=== PATIENT | female | born 1965 | race Caucasian/White ===

== ENCOUNTER → 2016-12-23 | Outpatient (CLI) | payer BC, OTHER ==
[2016-03-30 15:24] VITALS: BP 103/79
[~2016-12-23] MED LIST: ASPI-630 PO; ATORVASTATIN CA80 MG PO; LEVO137T3 PO; LISI2.5T PO; METO25TA9 PO; PRAS10TA9 PO
--- NOTE | 2016-12-23 12:51 | RAD ---
APPROVED REPORT Patient Location: OUT-PATIENT Indications Claudication:Bilaterally VELOCITY AND DOPPLER WAVEFORM ANALYSIS RIGHT cm/secWaveformSeverity LEFT c m/secWaveformSeverity pCFA 158.3pCFA 135.2 Prof Fem Art. 100.0Prof Fem Art. 85.6 Fem Art Prox. 108.3Fem Art Prox. 103.3 Fem Art Mid. 97.2Fem Art Mid. 91.0 Fem Art Dist. 70.9Fem Art Dist. 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 44.6PTA Dist. 35.3 Per Art Dist. 36.8Per Art Dist. 46.3 ROMELIA Dist. 61.1ATA Dist. 59.8 Findings Henao scale images of the right common femoral, superficial femoral, profunda, popliteal and below-kne e vessels reveals mild to moderate atherosclerotic plaque. Spectral waveforms and color Doppler from the common femoral segment to the popliteal segment are grossly normal with triphasic and biphasic wa veforms. Below the knee there are diminished velocities suggestive of diffuse atherosclerosis of appr oximately 50%. No high-grade flow-limiting stenosis is identified. There is three-vessel runoff below the knee. On the left side grayscale images again demonstrate moderate atherosclerotic plaque throughout the ar terial tree. Velocities are grossly normal from the common femoral to popliteal segment. Diffuse less than 50% stenosis noted. Below the knee again there is diminished velocities in the posterior tibial and peroneal vessels suggestive again of diffuse disease without any focal high-grade flow-limiting stenosis. There is again 3 vessel runoff noted. Critical Notification Critical Value: No <Conclusion> 1. Bilateral scattered after scrubbing plaque with no focal high-grade stenosis identified. Suspect d iffuse disease of approximately 50% throughout the arterial course. 2. Possible greater than 50% stenosis in the bilateral tibial peroneal systems.
== END | disposition home or self-care (01) ==
LOC: US 08:27
PROVIDERS: ATTEND Internal Medicine Cardiovascular Disease
DX: I73.9 Peripheral vascular disease, unspecified (principal); I25.10 Atherosclerotic heart disease of native coronary artery without angina pectoris; M79.605 Pain in left leg; M79.604 Pain in right leg
CPT/HCPCS: 93925

== ENCOUNTER → 2018-07-14 | Outpatient (CLI) | payer OTHER ==
[2016-03-30 15:24] VITALS: BP 103/79
[~2018-07-14] MED LIST changes: +METO-239 PO; -METO25TA9 PO
--- NOTE | 2018-07-14 15:08 | KCIC ---
EXAM: Abdomen sonogram. HISTORY: Right upper quadrant pain. TECHNIQUE: Sonographic imaging of the abdomen was performed. COMPARISON: 03/30/2016. FINDINGS: The liver is normal in size. No focal hepatic lesion is seen. There is slight increased hepatic parenchymal echogenicity. The common bile duct is normal in caliber. The gallbladder wall is normal in thickness. There is no convincing cholelithiasis. There is no pericholecystic fluid. The pancreas, kidneys, spleen, aorta and inferior vena cava are unremarkable. IMPRESSION: 1. Slightly echogenic liver parenchyma. This may be due to imaging technique or slight steatosis. 2. Otherwise, unremarkable abdomen sonogram. Electronically signed by: Sharla Joiner MD (07/14/2018 3:05 PM) [id number]
== END | disposition home or self-care (01) ==
LOC: KCIC US 10:45
PROVIDERS: ATTEND Family Medicine
DX: R10.11 Right upper quadrant pain (principal)
CPT/HCPCS: 76700

== ENCOUNTER → 2018-12-18 | Outpatient (CLI) | payer OTHER ==
[2016-03-30 15:24] VITALS: BP 103/79
--- NOTE | 2018-12-18 14:33 | KCIC ---
ABDOMEN LTD INDICATION: Epigastric pain COMPARISON: Abdominal ultrasound 07/14/2018. TECHNIQUE: Limited transverse and longitudinal grayscale images of the right upper quadrant with color and pulsed doppler utilized as appropriate. FINDINGS: The liver demonstrates normal echogenicity without focal lesions. The liver measures 13.4 cm. The portal vein is patent with normal antegrade flow. The gallbladder is normal in appearance without stones. No wall thickening or pericholecystic fluid. Negative sonographic Lane's sign. No intrahepatic or extrahepatic biliary dilatation. The common bile duct measures 0.2 cm. The visualized portions of the pancreas demonstrate normal echogenicity without focal lesions. The right kidney has normal echogenicity and measures 10.1 cm. No hydronephrosis, shadowing stones or suspicious masses seen. No ascites or fluid collections. The aorta and IVC are normal diameter where visualized. IMPRESSION: Normal right upper quadrant ultrasound. Electronically signed by: Jason Gee MD (12/18/2018 2:30 PM) [id number]
== END | disposition home or self-care (01) ==
LOC: KCIC US 09:30
PROVIDERS: ATTEND Family Medicine
DX: R10.13 Epigastric pain (principal); R10.11 Right upper quadrant pain
CPT/HCPCS: 76705

== ENCOUNTER 2020-06-22 14:12 | Emergency (ER) | payer OTHER ==
[~2020-06-22] VITALS: Ht 157.5 cm; Wt 63.6 kg
[2020-06-22 14:12] VITALS: BP 194/92
--- NOTE | 2020-06-22 14:21 | ED.ADGEN ---
Past Medical History Past Medical History: High Cholesterol, Hypertension, Hypothyroid, IN Past Surgical History: Other Additional Past Surgical Histo: cardiac cath with stents Smoking Status: Never Smoker Alcohol Use: None Drug Use: None General Adult EDM: Chief Complaint: HAND PROBLEM HPI: HPI: Patient is a 55-year-old female who arrives ambulatory to the emergency department complaining of an injury to her left hand. Patient reportedly fell just prior to arrival and tried to break her fall. In doing so the patient sustained an injury to her left hand in the region of her proximal thumb. Patient has swelling with ecchymosis now in addition to pain with any range of motion testing. The patient is right-hand dominant denies injury otherwise. She is awake, alert and nontoxic-appearing. Review of Systems: Review of Systems: Constitutional: Denies fever or chills. [] Eyes: Denies change in visual acuity. [] HENT: Denies nasal congestion or sore throat. [] Respiratory: Denies cough or shortness of breath. [] Cardiovascular: Denies chest pain or edema. [] GI: Denies abdominal pain, nausea, vomiting, bloody stools or diarrhea. [] : Denies dysuria. [] Musculoskeletal: Extremity pain/left hand pain. Denies back pain or joint pain. [] Integument: Reports ecchymosis with swelling of left thumb. Denies rash. [] Neurologic: Denies headache, focal weakness or sensory changes. [] Endocrine: Denies polyuria or polydipsia. [] Lymphatic: Denies swollen glands. [] Psychiatric: Denies depression or anxiety. [] Family History: Family History: Noncontributory Allergies: Allergies: Allergies Coded Allergies Type Severity Reaction Last Updated Verified morphine Adverse Reaction Mild Nausea 03/30/16 Yes Physical Exam: PE: Constitutional: Well developed, well nourished, no acute distress, non-toxic appearance. [] HENT: Normocephalic, atraumatic, bilateral external ears normal, oropharynx moist, no oral exudates, nose normal. [] Eyes: PERRLA, EOMI, conjunctiva normal, no discharge. [] Neck: Normal range of motion, no tenderness, supple, no stridor. [] Cardiovascular:Heart rate regular rhythm, no murmur [] Lungs & Thorax: Bilateral breath sounds clear to auscultation [] Abdomen: Bowel sounds normal, soft, no tenderness, no masses, no pulsatile masses. [] Skin: Warm, dry, no erythema, no rash. [] Back: No tenderness, no CVA tenderness. [] Extremities: Patient has tenderness to palpation at the base of her left thumb with associated ecchymosis and minimal swelling. The patient does have full range of motion however she does have this with pain. The remainder the examination with respect to her left hand is within normal limits. Neurologic: Alert and oriented X 3, normal motor function, normal sensory function, no focal deficits noted. [] Psychologic: Affect normal, judgement normal, mood normal. [] Current Patient Data: Vital Signs: Vital Signs Date Time Temp Pulse Resp B/P (MAP) Pulse Ox O2 Delivery O2 Flow Rate FiO2 06/22/20 14:12 98.1 91 18 194/92 (126) 96 Room Air 98.1 EKG: EKG: [] Heart Score: Risk Factors: Risk Factors: DM, Current or recent (<one month) smoker, HTN, HLP, family history of CAD, obesity. Risk Scores: Score 0 - 3: 2.5% MACE over next 6 weeks - Discharge Home Score 4 - 6: 20.3% MACE over next 6 weeks - Admit for Clinical Observation Score 7 - 10: 72.7% MACE over next 6 weeks - Early Invasive Strategies Radiology/Procedures: Radiology/Procedures: [] Impression: [facility] [address] [place] [address] IMAGING REPORT Signed PATIENT: JOSE GUADALUPE MENDOZA ACCOUNT: [id number] : 1965 LOCATION: ER AGE: 55 SEX: F EXAM STATUS: REG ER ORD. PHYSICIAN: JAMISON PADILLA DO REASON: thumb injury, pt states fell landing on hand, pain to thumb. PROCEDURE: HAND LEFT 3V LEFT HAND, VIEWS 3 Indication: Reason: thumb injury, pt states fell landing on hand, pain to thumb. Findings: There is no acute fracture or dislocation. Bony articulations are normal. There is no bony erosion. Mineralization is normal. There is no radiographically apparent soft tissue swelling or radiopaque foreign body. IMPRESSION: No acute fracture or dislocation. Electronically signed by: Isra Baez MD (06/22/2020 2:40 PM) [facility] DICTATED and SIGNED BY: ISRA BAEZ MD DATE: 06/22/20 [id number] 0 Course & Med Decision Making: Course & Med Decision Making Pertinent Labs and Imaging studies reviewed. (See chart for details) [] Dragon Disclaimer: Dragon Disclaimer: This electronic medical record was generated, in whole or in part, using a voice recognition dictation system. Departure Departure Impression: Primary Impression: Thumb contusion Disposition: 01 DC HOME SELF CARE/HOMELESS Condition: GOOD Referrals: SY COYLE MD (PCP) Patient Instructions: Thumb Sprain JAMISON PADILLA DO Jun 22, 2020 14:21
--- NOTE | 2020-06-22 14:43 | RAD ---
LEFT HAND, VIEWS 3 Indication: Reason: thumb injury, pt states fell landing on hand, pain to thumb. Findings: There is no acute fracture or dislocation. Bony articulations are normal. There is no bony erosion. Mineralization is normal. There is no radiographically apparent soft tissue swelling or radiopaque f oreign body. IMPRESSION: No acute fracture or dislocation. Electronically signed by: Isra Baez MD (06/22/2020 2:40 PM) [facility]
== END 2020-06-22 15:03 | disposition home or self-care (01) ==
LOC: ER 14:12
DX: S60.012A Contusion of left thumb without damage to nail, initial encounter (principal); E78.00 Pure hypercholesterolemia, unspecified; I10 Essential (primary) hypertension; E03.9 Hypothyroidism, unspecified; I25.2 Old myocardial infarction; Z88.5 Allergy status to narcotic agent; W18.39XA Other fall on same level, initial encounter; Y93.89 Activity, other specified; Y92.89 Other specified places as the place of occurrence of the external cause; Y99.8 Other external cause status
CPT/HCPCS: 73130; 99284

== ENCOUNTER → 2021-02-22 | Outpatient (CLI) | payer OTHER ==
[~2021-02-22] MED LIST changes: -LISI2.5T PO; +LISI2.5T12 PO
--- NOTE | 2021-02-26 08:30 | KCIC ---
EXAM: Abdomen sonogram. HISTORY: Pain. TECHNIQUE: Sonographic imaging of the abdomen was performed. COMPARISON: 12/18/2018. FINDINGS: The liver is normal in size. No focal hepatic lesion is seen. The gallbladder is unremarkab le. The common bile duct is normal in caliber. The kidneys, pancreas, spleen, aorta and inferior vena cava are unremarkable. IMPRESSION: Unremarkable abdomen sonogram. Electronically signed by: Sharla Joiner MD (02/26/2021 8:28 AM) [id number]
== END ==
LOC: KCIC US 12:28
PROVIDERS: ATTEND Family Medicine
DX: R10.11 Right upper quadrant pain (principal)
CPT/HCPCS: 76700